=== PATIENT | female | born 1945 | race African-American/Black ===

== ENCOUNTER 2025-02-04 15:30 | Emergency (ER) | payer OTHER, MEDICAID ==
[~2025-02-04] VITALS: Ht 165.1 cm; Wt 69.0 kg
[2025-02-04 15:44] VITALS: TEMP 36.9; O2SAT 99
[2025-02-04] MEDS: IBUPROFEN 600MG TABLET PO ONE (19:54)
[2025-02-04] MEDS: CYCLOBENZAPRINE 10MG TABLET PO ONE (19:54)
[2025-02-04] MEDS ORDERED: CYCL10TA21 MT (20:05)
[2025-02-04] MEDS ORDERED: IBUP-2029 MT (20:05)
[2025-02-04 20:42] VITALS: BP 155/68; PULSE 68; RESP 20; O2SAT 99
== END 2025-02-04 20:42 | disposition home or self-care (01) ==
LOC: ER 15:30
DX: M54.2 Cervicalgia (principal); M54.50 Low back pain, unspecified; I10 Essential (primary) hypertension; M47.812 Spondylosis without myelopathy or radiculopathy, cervical region; V43.52XA Car driver injured in collision with other type car in traffic accident, initial encounter; Y92.410 Unspecified street and highway as the place of occurrence of the external cause; Y93.89 Activity, other specified; Y99.8 Other external cause status
CPT/HCPCS: 72131; 99284